=== PATIENT | female | born 1980 | race Caucasian/White ===

== ENCOUNTER 2019-03-11 13:54 | Inpatient (IN) | payer OTHER ==
[~2019-03-11] VITALS: Ht 152.4 cm; Wt 66.7 kg
[~2019-03-11 13:54] MED LIST: PRENATABS RX TA1 TAB
== END 2019-03-13 13:18 | disposition home or self-care (01) | DRG 768 ==
LOC: OB/GYN 13:54 → LDR 13:54 → OB/GYN 18:11
PROVIDERS: ADMIT Obstetrics & Gynecology
PROC: 10E0XZZ Delivery of Products of Conception, External Approach (ICD-10-PCS; principal; 2019-03-11)
PROC: 0UQC0ZZ Repair Cervix, Open Approach (ICD-10-PCS; 2019-03-11)
PROC: 4A1HXCZ Monitoring of Products of Conception, Cardiac Rate, External Approach (ICD-10-PCS; 2019-03-11)
PROC: 3E033VJ Introduction of Other Hormone into Peripheral Vein, Percutaneous Approach (ICD-10-PCS; 2019-03-11)
PROC: 4A033R1 Measurement of Arterial Saturation, Peripheral, Percutaneous Approach (ICD-10-PCS; 2019-03-11)
DX: O71.3 Obstetric laceration of cervix (principal); Z37.0 Single live birth; O60.14X0 Preterm labor third trimester with preterm delivery third trimester, not applicable or unspecified; O13.3 Gestational [pregnancy-induced] hypertension without significant proteinuria, third trimester; Z3A.36 36 weeks gestation of pregnancy; Z22.330 Carrier of Group B streptococcus

== ENCOUNTER 2019-04-03 18:56 | Inpatient (IN) | payer OTHER ==
[~2019-04-03] VITALS: Ht 149.9 cm; Wt 59.0 kg
[2019-04-06] MEDS ORDERED: LABETALOL HCL200 MG PO (09:03)
== END 2019-04-06 10:29 | disposition home or self-care (01) | DRG 305 ==
LOC: ER 18:56 → OB/GYN 23:15
PROVIDERS: ADMIT Obstetrics & Gynecology
DX: I16.0 Hypertensive urgency (principal)